=== PATIENT | female | born 1985 | race Two or more races ===

== ENCOUNTER 2016-05-18 17:18 | Emergency (ER) | payer OTHER ==
[~2016-05-18] VITALS: Ht 162.6 cm; Wt 53.1 kg
[2016-05-18] MEDS ORDERED: Ketorolac 60mg Inj IM ONE (18:00)
[2016-05-18] MEDS ORDERED: Ketorolac 30mg Inj ONE (18:01)
[2016-05-18 18:31] LABS: BASOPHILS % (AUTO) 1.1 % (0.0-2.0); EOSINOPHILS % (AUTO) 1.1 % (0.0-3.0); LYMPHOCYTES % (AUTO) 17.8 % (20.0-45.0); MEAN CORPUSCULAR HEMOGLOBIN 28.7 PG (27.0-31.0); MEAN CORPUSCULAR HGB CONC 32.1 G/DL (32.0-36.0); MEAN CORPUSCULAR VOLUME 89 FL (80-99); MEAN PLATELET VOLUME 9.3 FL (6.5-10.1); MONOCYTES % (AUTO) 5.6 % (1.0-10.0); NEUTROPHILS % (AUTO) 74.4 % (45.0-75.0); PLATELET COUNT 192 K/UL (150-450); RED BLOOD COUNT 4.47 M/UL (4.20-5.40); RED CELL DISTRIBUTION WIDTH 11.8 % (11.6-14.8); WHITE BLOOD COUNT 12.9 K/UL (4.8-10.8)
[2016-05-18 18:43] LABS: APPEARANCE,URINE CLEAR; KETONES,URINE NEGATIVE (NEGATIVE); LEUKOCYTE ESTERASE ,URINE NEGATIVE (NEGATIVE); NITRITE,URINE NEGATIVE (NEGATIVE); PH,URINE 7 (4.5-8.0); PROTEIN,URINE NEGATIVE (NEGATIVE); UROBILINOGEN,URINE NORMAL MG/DL (0.0-1.0)
[2016-05-18 18:53] LABS: ALANINE AMINOTRANSFERASE 8 U/L (3-33); ALBUMIN/GLOBULIN RATIO 1.6 (1.0-2.7); ANION GAP 16 (5-15); ASPARTATE AMINO TRANSFERASE 16 U/L (5-40); CALCIUM 9.3 mg/dL (8.6-10.2); CARBON DIOXIDE 23 mEQ/L (20-30); CHLORIDE 103 mEQ/L (98-107); CREATININE 0.9 mg/dL (0.5-0.9); GLOMERULAR FILTRATION RATE > 60 mL/min (>60); HEMOLYSIS 4; POTASSIUM 4.3 mEQ/L (3.4-4.9); SODIUM 142 mEQ/L (135-145); TOTAL PROTEIN 7.3 g/dL (6.6-8.7)
[2016-05-18 19:45] VITALS: BP 120/76
--- NOTE | 2016-05-18 20:33 | Emergency Room Report ---
History of Present Illness General Chief Complaint: Abdominal Pain Source: Patient Present Illness HPI Patient complains of left-sided abdominal pain for one week. States that pain is worse with palpating lower left quadrant, with urination, and with sitting down. States pain is located lower left quadrant radiates to the left flank. Patient also states that his better with sitting up and without urinating. Patient states she has a history of ovarian cysts but that this pain feels different as her ovarian cyst pain is really worse with her menstrual period. Denies taking any medication currently for her symptoms. Denies any history of kidney stones, UTI, PID, dyspareunia, or irregular menses. Denies any current n/ v/f/c/d, back pain, neck pain, photophobia, phonophobia, CP, SOB or headache. Allergies: Coded Allergies: No Known Allergies (Unverified , 05/18/16) Patient History Limited by: language barrier Past Medical History: see triage record Pertinent Family History: none Last Menstrual Period: may 07, 2016 Now: No Immunizations: UTD Reviewed Nursing Documentation: PMH: Agreed, PSxH: Agreed Nursing Documentation-PMH Past Medical History: No Stated History Review of Systems All Other Systems: negative except mentioned in HPI Physical Exam Vital Signs Date Time Temp Pulse Resp B/P Pulse Ox O2 Delivery O2 Flow Rate FiO2 05/18/16 17:45 98.1 83 15 120/76 98 Room Air Sp02 EP Interpretation: reviewed, normal General Appearance: no apparent distress, alert, GCS 15, non-toxic Head: normocephalic, atraumatic Eyes: bilateral eye PERRL, bilateral eye normal inspection Neck: full range of motion, supple/symm/no masses Respiratory: chest non-tender, lungs clear, normal breath sounds, speaking full sentences Cardiovascular #1: regular rate, rhythm, no edema Gastrointestinal: normal bowel sounds, soft, non-distended, no guarding, no rebound, tenderness - LLQ tenderness Rectal: deferred Genitourinary: no CVA tenderness Musculoskeletal: back normal, gait/station normal, normal range of motion, non- tender Neurologic: alert, oriented x3, responsive, motor strength/tone normal, sensory intact, speech normal Psychiatric: judgement/insight normal, memory normal, mood/affect normal, no suicidal/homicidal ideation Skin: normal color, no rash, warm/dry, well hydrated Medical Decision Making PA Attestation Dr. Carter is my supervising physician with whom patient management has been discussed with. Diagnostic Impression: Primary Impression: Ruptured ovarian cyst Additional Impression: Abdominal pain in female ER Course Pt. presents to the ED c/o abdominal pain Ddx considered but are not limited to appendicitis, kidney stone, UTI, pyelonephritis, ovarian cyst, ovarian torsion. Vital signs: are WNL, pt. is afebrile H&PE are most consistent with ruptured ovarian cyst ORDERS: UA, CBC, CMP, Preg, Pelvic US, Abd CT w/o contrast ED INTERVENTIONS: Toradol 30mg. DISCHARGE: At this time pt. is stable for d/c to home. Will provide printed patient care instructions, and any necessary prescriptions. Care plan and follow up instructions have been discussed with the patient prior to discharge. Laboratory Tests Test 05/18/16 17:11 05/18/16 17:52 White Blood Count 12.9 K/UL (4.8-10.8) H Red Blood Count 4.47 M/UL (4.20-5.40) Hemoglobin 12.8 G/DL (12.0-16.0) Hematocrit 39.9 % (37.0-47.0) Mean Corpuscular Volume 89 FL (80-99) Mean Corpuscular Hemoglobin 28.7 PG (27.0-31.0) Mean Corpuscular Hemoglobin Concent 32.1 G/DL (32.0-36.0) Red Cell Distribution Width 11.8 % (11.6-14.8) Platelet Count 192 K/UL (150-450) Mean Platelet Volume 9.3 FL (6.5-10.1) Neutrophils (%) (Auto) 74.4 % (45.0-75.0) Lymphocytes (%) (Auto) 17.8 % (20.0-45.0) L Monocytes (%) (Auto) 5.6 % (1.0-10.0) Eosinophils (%) (Auto) 1.1 % (0.0-3.0) Basophils (%) (Auto) 1.1 % (0.0-2.0) Sodium Level 142 mEQ/L (135-145) Potassium Level 4.3 mEQ/L (3.4-4.9) Chloride Level 103 mEQ/L (98-107) Carbon Dioxide Level 23 mEQ/L (20-30) Anion Gap 16 (5-15) H Blood Urea Nitrogen 13 mg/dL (7-23) Creatinine 0.9 mg/dL (0.5-0.9) Estimate Glomerular Filtration Rate > 60 mL/min (>60) Glucose Level 100 mg/dL (74-106) Calcium Level 9.3 mg/dL (8.6-10.2) Total Bilirubin 0.3 mg/dL (0.0-1.2) Aspartate Amino Transferase (AST) 16 U/L (5-40) Alanine Aminotransferase (ALT) 8 U/L (3-33) Alkaline Phosphatase 38 U/L (35-104) Total Protein 7.3 g/dL (6.6-8.7) Albumin 4.5 g/dL (3.5-5.2) Globulin 2.8 g/dL Albumin/Globulin Ratio 1.6 (1.0-2.7) Urine Color Pale yellow Urine Appearance Clear Urine pH 7 (4.5-8.0) Urine Specific [place] 1.005 (1.005-1.035) Urine Protein Negative (NEGATIVE) Urine Glucose (UA) Negative (NEGATIVE) Urine Ketones Negative (NEGATIVE) Urine Occult Blood Negative (NEGATIVE) Urine Nitrite Negative (NEGATIVE) Urine Bilirubin Negative (NEGATIVE) Urine Urobilinogen Normal MG/DL (0.0-1.0) Urine Leukocyte Esterase Negative (NEGATIVE) Urine HCG, Qualitative Negative CT/MRI/US Diagnostic Results CT/MRI/US Diagnostic Results : Imaging Test Ordered: CT Abd/ Pelvis, Pelvic US Impression Ruptured ovarian cysts, 3cm ovarian cyst present, large amount of stool Last Vital Signs Date Time Temp Pulse Resp B/P Pulse Ox O2 Delivery O2 Flow Rate FiO2 05/18/16 19:45 98.1 82 15 120/76 98 Room Air Disposition: HOME, SELF-CARE Condition: Improved Referrals: DAIJA QIUREFERRING (PCP) Patient Instructions: Abdominal Pain, Adult Additional Instructions: Take medication as directed. Patient instructed to stay well hydrated and to use a liquid diet and then progress to soft bland diet as tolerated before reverting back to a regular diet. Patient Education was given to the patient. Patient advised if irreretractible pain, rectal bleeding, or no BM to go to ER immediately. SCAR CARLOS May 18, 2016 20:32
[2016-05-18] MEDS ORDERED: NAPROXEN500 M2 ORAL (20:42)
[2016-05-18] MEDS ORDERED: ACETAMINOPHEN-1 EAC1 ORAL (20:42)
[2016-05-18 20:55] VITALS: BP 120/76
--- NOTE | 2016-05-19 09:26 | Diagnostic Imaging Report ---
Indication: Left flank pain Technique: Spiral acquisitions obtained through the abdomen and pelvis. No oral or IV contrast utilized, per urinary stone protocol. Multiplanar reconstructions were generated. Total dose length product were 64 mGycm. CTDIvol(s) 9 mGy Comparison: None Findings: No renal or ureteral calculi, hydronephrosis, hydroureter. Lack of IV contrast limits assessment of the renal parenchyma. No gross renal parenchymal mass or cyst Lack of IV contrast limits assessment of solid organs. The liver, gallbladder, bile ducts, pancreas, spleen, adrenals are all grossly unremarkable. No retroperitoneal or mesenteric mass or adenopathy. There is a 3.5 cm cyst in the left ovary. There is small amount of free pelvic cul-de-sac fluid. The appendix is not definitely visualized, but there are no findings to suggest acute appendicitis. No small bowel distention. No free intraperitoneal air. The distal esophagus, stomach, duodenum are unremarkable. The included lung bases are clear. The bones are unremarkable. Impression: Small amount of free cul-de-sac fluid, also described on recent ultrasound, most likely physiologic Left ovarian cyst, also described on recent ultrasound Negative for evidence of urinary stone disease or other acute pathology This agrees with the preliminary interpretation provided overnight by Dr. Rueda The CT scanner at [facility] is accredited by the [employer] and the scans are performed using protocols designed to limit radiation exposure to as low as reasonably achievable to attain images of sufficient resolution adequate for diagnostic evaluation.
--- NOTE | 2016-05-19 10:27 | Diagnostic Imaging Report ---
Indication: PAIN Technique: Transabdominal and transvaginal images Comparison: Reference made to CT scan 05/18/2016 Findings: Uterus measures 5.9 cm length by 4.2 cm AP. The endometrium thickness is 9 mm. No myometrial abnormality. There is a small uterine fundal fibroid. There are small cervical nabothian cysts. The left ovary measures 3.8 cm in length. It demonstrates a 2.8 cm cyst with a septation.. The right ovary measures 4 cm in length. There is a small amount of free cul-de-sac fluid Impression: 2.8 cm cyst in the left ovary, likely a physiologic cyst. Or graft small amount of free cul-de-sac fluid, likely related to recent follicular rupture No evidence of ovarian torsion Uterine fibroid This agrees with the preliminary interpretation provided overnight by Dr. Rueda
== END 2016-05-18 20:55 | disposition home or self-care (01) ==
LOC: EMR 17:50
DX: N83.202 Unspecified ovarian cyst, left side (principal); R10.814 Left lower quadrant abdominal tenderness
CPT/HCPCS: 36415; 74176; 76856; 80053; 81003; 81025; 85025; 96372; 99284